=== PATIENT | female | born 1935 | race Caucasian/White ===

== ENCOUNTER 2021-11-18 22:17 | Emergency (ER) | payer MEDICARE, BC ==
[2021-11-18 23:18] LABS: ANION GAP 7.5 meq/L (7-15)
== END 2021-11-18 23:56 ==
LOC: LL.ED 22:17 → SUPCPDRO 22:17 → LL.ED 23:56
DX: R41.82 Altered mental status, unspecified (principal); Z91.048 Other nonmedicinal substance allergy status; Z88.5 Allergy status to narcotic agent; Z79.899 Other long term (current) drug therapy
CPT/HCPCS: 36415; 80053; 85025; 99284; 99285